=== PATIENT | female | born 1950 | race African-American/Black ===

== ENCOUNTER 2018-06-12 17:12 | Inpatient (IN) ==
[2018-06-12 18:00] LABS: BASO# 0.04 X1000 (0.0-0.2); BASO% 0.5 % (0.0-0.8); EOS# 0.16 X1000 (0.0-0.7); EOS% 2.2 % (0.0-10.0); HEMATOCRIT 33.4 % (37.0-47.0); HEMOGLOBIN 9.8 g/dL (12.0-16.0); IMM GRAN# 0.04 X1000 (0.0-0.04); IMM GRAN% 0.5 % (0.0-0.5); LYMPH% 21.9 % (20.5-51.1); MCH 24.9 PG (27-31); MCHC 29.3 g/dL (33-37); MONO# 0.67 X1000 (0.11-0.59); MONO% 9.2 % (1.7-9.3); NEUT# 4.81 X1000 (1.4-6.5); NEUT% 65.7 % (42.2-75.2); PLT 283 X1000 (130-400); RBC 3.93 XMIL (4.2-5.4); RDW 17.2 % (11.5-14.5); WBC 7.32 X1000 (4.8-10.8)
[2018-06-12 18:21] LABS: ALBUMIN 4.2 g/dL (3.5-5.0); CALCIUM 8.6 mg/dL (8.8-10.2); CREATININE 2.9 mg/dL (0.5-0.9); POTASSIUM 5.8 mmol/L (3.5-5.1); TOTAL BILIRUBIN 0.2 mg/dL (0.20-1.00); TOTAL PROTEIN 8.1 g/dL (6.3-8.3)
[2018-06-12 19:04] LABS: BILIRUBIN URINE NEGATIVE (NEGATIVE); BLOOD URINE NEGATIVE (NEGATIVE); CLARITY SL. CLOUDY (CLEAR); COLOR YELLOW; GLUCOSE URINE NEGATIVE (NEGATIVE); KETONE URINE NEGATIVE (NEGATIVE); LEUKOCYTES URINE 1+ (NEGATIVE); NITRITE URINE NEGATIVE (NEGATIVE); PROTEIN URINE 1+(30 mg/dL) mg/dL (NEGATIVE); SP GRAVITY URINE 1.015; UROBILINOGEN URINE NORMAL
[2018-06-12 19:07] LABS: URINE BACTERIA 2+ /HFP; URINE CAST NONE SEEN /LPF; URINE CRYSTAL NONE SEEN /HPF; URINE EPITHELIAL CELLS >10 /HPF (<10); URINE SOURCE CLEAN CATCH; URINE YEAST PRESENT /HPF
--- NOTE | 2018-06-12 19:16 | PROVIDER DOCUMENTATION ---
HPI-Abdominal Pain/GI Problem - General Chief Complaint: Abdominal Pain Stated Complaint: STOMACH PAIN/COLD Time Seen by Provider: 06/12/18 18:33 Source: patient, family Allergies/Adverse Reactions: Patient Allergies Allergy/AdvReac Type Severity Reaction Status Date / Time codeine [Codeine] Allergy Unknown Verified 06/12/18 17:25 Penicillins Allergy Unknown Verified 06/12/18 17:25 Home Medications: Home Medication List Medication Instructions Recorded Confirmed Last Taken Type Clopidogrel [Plavix] 75 mg PO DAILY 06/02/14 08/26/17 08/09/15 09:00 History ATORVAstatin [Lipitor] 80 mg PO QHS 10/25/14 08/26/17 08/09/15 09:00 History Omeprazole 20 mg PO DAILY@0700 10/25/14 08/26/17 08/09/15 06:00 History Tamsulosin HCl 0.4 mg PO QHS 10/25/14 08/26/17 08/09/15 09:00 History Carvedilol [Coreg] 25 mg PO BID #60 tablet 08/05/15 08/26/17 08/09/15 21:00 Rx Amlodipine [Norvasc] 10 mg PO DAILY 08/10/15 08/26/17 08/08/15 09:00 History Escitalopram Oxalate [Lexapro] 10 mg PO DAILY 12/25/16 08/26/17 Unknown History Insulin Glargine [Lantus] 15 unit SUBQ QHS 12/25/16 08/26/17 Unknown History Furosemide [Lasix] 40 mg PO DAILY #30 tab 08/23/17 08/26/17 Unknown Rx Potassium Chloride E.r. [Klor-Con] 20 meq PO DAILY tablet 08/23/17 08/26/17 Unknown Rx Atropine 1 % Ophth Soln 4 drop PO PRN PRN 08/27/17 08/27/17 Unknown History Levofloxacin [Levaquin] 250 mg PO Q48H #3 tab 08/30/17 Unknown Rx - History of Present Illness-ABD Nature of Presenting Problems: Patient is a 67yo F, accompanied by son, who presents w/ c/o generalized abdominal pain and nausea intermittently x1 week. Patient has had a CVA and patient's son is her caregiver at home. Patient is a somewhat poor historian d/t CVA. Son reports she has had a BM [employer], but that she hasn't been having "good" BMs recently. Patient's son reports possible fever, d/t patient sweating, which is abnormal for her. Patient reports intermittent burning upon urination. Denies any vomiting, urinary frequency/urgency, CP, or SOB. Abdominal Pain Onset Location: reports: generalized abdomen Pain Radiation: reports: no radiation Quality of Pain: reports: pressure, throbbing Severity in ED: reports: moderate Onset/Duration: reports: 1 week ago Timing: reports: intermittent Activities at Onset: reports: none Modifying Factors: improves with: nothing Associated Symptoms: reports: constipation, fever/chills, genitourinary problems , nausea. denies: chest pain, diarrhea, dizziness, vomiting Last BM: this afternoon Dark Stools Present?: reports: none noticed Rectal Bleeding: reports: none Rectal Pain: reports: none Emesis Description: reports: none Bruising or Bleeding Gums?: No Similar Symptoms Previously?: No Recently seen or treated by another doctor?: No Review of Systems - Adult - REVIEW OF SYSTEMS - ADULT ROS:: ROS per family Constitutional: reports: chills, fever Eyes: reports: no symptoms reported Ears, Nose, Mouth & Throat: reports: no symptoms reported Cardiovascular: denies: chest pain, palpitations Respiratory: denies: cough, shortness of breath Gastrointestinal: reports: see HPI, abdominal pain, constipation, nausea. denies: diarrhea, vomiting Genitourinary: reports: see HPI, dysuria. denies: frequency, urgency Musculoskeletal: reports: no symptoms reported Integumentary: reports: no symptoms reported Neurological: reports: see HPI, slurred speech (hx of CVA) Psychiatric: reports: no symptoms reported Endocrine: reports: no symptoms reported All Other Systems: Reviewed and Negative Past History - Adult - PAST MEDICAL HISTORY-ADULT Review of Records: reports: Nursing Assessment Review, Medications Reviewed Major Childhood Illnesses: reports: denies history Cardiovascular: reports: CAD, HTN, hyperlipidemia, CT Respiratory: reports: denies history Gastrointestinal: reports: denies history Obstetrical/Gynecological: reports: denies history Genitourinary: reports: kidney disease, chronic UTI's Musculoskeletal: reports: denies history Neurological: reports: CVA, stroke deficits (left sided), dementia Endocrine/Immune: reports: anemia, Diabetes Other Conditions: reports: denies history - PRIOR SURGERIES/PROCEDURES Surgical/Procedure History: reports: cholecystectomy, hysterectomy - IMMUNIZATION STATUS Childhood Immunizations: See Nurse Assessment Flu Vaccine: See Nurse Assessment - FAMILY HISTORY Family History: reviewed, not pertinent - SOCIAL HISTORY Smoking: other (former) Physical Exam-General - PHYSICAL EXAM-ADULT Initial Vital Signs Reviewed: Yes - CONSTITUTIONAL General Appearance: alert, moderate distress, other (slurred speech d/t CVA hx) - EYES Eyes: PERRL/EOMI, pink conjunctivae - HEAD, EARS, NOSE, MOUTH & THROAT HENMT: normocephalic/atraumatic, moist mucous membranes - NECK Neck: supple, normal inspection - RESPIRATORY Respiratory: chest non-tender, lungs clear, normal breath sounds, no pleuratic chest pain, no respiratory distress, no accessory muscle use - CARDIOVASCULAR Cardiovascular: regular rate, rhythm, no gallop, no murmur - GASTROINTESTINAL (ABDOMEN) Abdominal Exam: normal bowel sounds, tenderness (generalized TTP), other (semi- firm abdomen upon palpation). negative: guarding, rigid, rebound, McBurney's point tenderness - MUSCULOSKELETAL Back Exam: normal inspection Extremity: normal range of motion, non-tender - SKIN Integumentary: normal color, normal turgor - NEUROLOGIC Neurologic: grossly normal - PSYCHIATRIC Psych/Mental Status: normal mood/affect Progress - PLAN OF CARE/RESULTS Progress/Plan/Lab Results: Vital Signs - 8 hr 06/12/18 17:22 Temperature 98.9 F Pulse Rate 80 Respiratory Rate 20 Blood Pressure 127/73 O2 Sat by Pulse Oximetry 98 Laboratory Results - last 24 hr 06/12/18 06/12/18 06/12/18 17:46 17:46 17:46 WBC 7.32 RBC 3.93 L Hgb 9.8 L Hct 33.4 L MCV 85.0 MCH 24.9 L MCHC 29.3 L RDW Std Deviation 17.2 H Plt Count 283 MPV 10.0 Immature Gran % (Auto) 0.5 Neut % (Auto) 65.7 Lymph % (Auto) 21.9 [place] % (Auto) 9.2 Eos % (Auto) 2.2 Baso % (Auto) 0.5 Immature Gran # (Auto) 0.04 Neut # (Auto) 4.81 Lymph # (Auto) 1.60 [place] # (Auto) 0.67 H Eos # (Auto) 0.16 Baso # (Auto) 0.04 Sodium 142 Potassium 5.8 H Chloride 117 H Carbon Dioxide 14 L Anion Gap 11 BUN 23 H Creatinine 2.9 H Estimated GFR/1.73 m2 16 BUN/Creatinine Ratio 8 Glucose 164 H Calculated Osmolality 290 Calcium 8.6 L Total Bilirubin 0.20 AST 9 L ALT 8 L Alkaline Phosphatase 216 H Total Protein 8.1 Albumin 4.2 Globulin 4.0 Albumin/Globulin Ratio 1.0 Amylase 297 H Lipase 179 H Urine Source Urine Color Urine Clarity Urine pH Ur Specific [place] Urine Protein Urine Ketones Urine Blood Urine Nitrite Urine Bilirubin Urine Urobilinogen Urine Microscopic RBC Urine WBC Urine Microscopic WBC Ur Epithelial Cells Urine Crystals Urine Bacteria Urine Casts Urine Yeast Urine Glucose 06/12/18 18:29 WBC RBC Hgb Hct MCV MCH MCHC RDW Std Deviation Plt Count MPV Immature Gran % (Auto) Neut % (Auto) Lymph % (Auto) [place] % (Auto) Eos % (Auto) Baso % (Auto) Immature Gran # (Auto) Neut # (Auto) Lymph # (Auto) [place] # (Auto) Eos # (Auto) Baso # (Auto) Sodium Potassium Chloride Carbon Dioxide Anion Gap BUN Creatinine Estimated GFR/1.73 m2 BUN/Creatinine Ratio Glucose Calculated Osmolality Calcium Total Bilirubin AST ALT Alkaline Phosphatase Total Protein Albumin Globulin Albumin/Globulin Ratio Amylase Lipase Urine Source CLEAN CATCH Urine Color YELLOW Urine Clarity SL. CLOUDY A Urine pH 5.0 Ur Specific [place] 1.015 Urine Protein 1+(30 mg/dL) A Urine Ketones NEGATIVE Urine Blood NEGATIVE Urine Nitrite NEGATIVE Urine Bilirubin NEGATIVE Urine Urobilinogen NORMAL Urine Microscopic RBC Not Reportable Urine WBC 1+ A Urine Microscopic WBC 10-20 A Ur Epithelial Cells >10 A Urine Crystals NONE SEEN Urine Bacteria 2+ Urine Casts NONE SEEN Urine Yeast PRESENT Urine Glucose NEGATIVE Orders Category Date Time Status Cardiac Monitoring DIRECTED Care 06/12/18 19:12 Active Saline Loc NOW Care 06/12/18 19:11 Active Straight Catheterization ORDERED Care 06/12/18 18:30 Active KUB ABDOMEN [RAD] Stat Exams 06/12/18 19:11 Ordered AMYLASE [CHEM] Stat Lab 06/12/18 17:46 Completed CBC WITH DIFF [HEME] Stat Lab 06/12/18 17:46 Completed CMP [COMPREHENSIVE METABOLIC PANEL] [CHEM] Stat Lab 06/12/18 17:46 Completed LIPASE [CHEM] Stat Lab 06/12/18 17:46 Completed URINE CULTURE [RM] Routine Lab 06/12/18 19:07 Ordered ua [URINALYSIS PL W/POSS RFLX CULT] [URINALYSIS] Stat Lab 06/12/18 18:29 Completed EKG [EKG] Stat Ther 06/12/18 19:03 Ordered Lab results, imaging results, and plan of care discussed with patient and son who verbalize understanding. Plan of care discussed and formulated in conjunction with Dr. Villalobos. Result Diagrams: 06/12/18 17:46 06/12/18 17:46 - EKG 1 Time of EKG reading by physician:: 19:21 EKG Read and Signed by:: Umer Villalobos EKG Interpretation (*Must complete 3 of following elements*): Abnormal Rate: 80 Rhythm: NSR Early: normal QRS: LVH CA Interval: normal ST Wave: non-specific ST changes (Consider lateral ischemia) Comments: Possible L atrial enlargement - CT/MRI 1 CT Study: Abdomen, Pelvis Impression: See EMR Report ([facility] [address] [place] [address], [address], [place] [address] Department of Imaging Patient: AYLEEN BARR ANNADM Date: 06/12/18#: [id number] : 1950DM Status: REG ERAcct#: [id number] Age/Sex: 67/FRoom/Bed: Loc: P.ED Ordering Physician: Umer Villalobos MD Family Physician: Jose Armando George MD Reason for Procedure: abdominal pain Signed EXAM: CT ABDOMEN/PELVIS W/O CONTRAST HISTORY: abdominal pain TECHNIQUE: CT abdomen and pelvis without contrast COMPARISON: None. FINDINGS: The heart is enlarged. The gallbladder has been removed. No focal hepatic abnormality identified on this noncontrasted exam. Spleen is not enlarged. Normal pancreas and adrenal glands. No renal stones. No hydronephrosis. Moderate atherosclerosis. Normal appendix. No abscess. No bowel obstruction. No ascites. There are scattered diverticula. The uterus has been removed. Urinary bladder is mildly distended. No pelvic mass. Weakening to the anterior abdominal musculature most pronounced at the umbilicus. IMPRESSION: 1.Cholecystectomy 2.Cardiomegaly 3.Hysterectomy 4.Scattered diverticula This exam was performed using automated exposure control, adjustment of mA or kV according to patient size, and/or use of iterative reconstruction technique. Electronically signed by Ernie Juarez 06/12/2018 8:02 PM 06/12/182001 Interpreting Physician: Ernie Juarez MD Dictated Date/Time: 06/12/182000 cc: Umer Villalobos MD; Jose Armando George MD) - CONSULTS/PCP/HOSPITALIST Notification #1 *Consult/PCP/Hospitalist*: Kalyani Gilist Time Discussed: 20:15 Reason/Comments: Hyperkalemia, abdominal pain, UTI Consult Disposition: Admit Departure - Departure Date of Disposition Decision: 06/12/18 Time of Disposition Decision: 20:17 DIAGNOSIS: Hyperkalemia Abdominal pain Qualifiers: Abdominal location: generalized Qualified Code(s): R10.84 - Generalized abdominal pain UTI (urinary tract infection) Qualifiers: Urinary tract infection type: site unspecified Hematuria presence: without hematuria Qualified Code(s): N39.0 - Urinary tract infection, site not specified Disposition: ADMITTED INPATIENT 09 Certified Medical Emergency: Emergent Condition: Stable - Critical Care Note This patient required my direct & personal management of CC.: No Attestation - Physician/ DANIEL Attestation Patient care was provided by Advanced Practice Provider:: Yes Advanced Practice Provider:: Valeria Estrada Advanced Practice Provider documentation review:: The Mid-level provider documentation, treatment plan and medical decision making was reviewed by the physician who agrees with all treatment and medical decision making by the P. The physician spent face to face time with patient:: No Advanced Practice Provider documentation review:: Supervising physician onsite and consulted in the evaluation and care of this patient. The physician did not have a face to face encounter with the patient.
[2018-06-12] MEDS ORDERED: ROCEPHIN 1 GM in NS 50 ML IV ONE (19:28)
[2018-06-12] MEDS ORDERED: SODIUM BICARBONATE 8.4% IV PUSH ONE (19:29)
[2018-06-12] MEDS ORDERED: D50W SYRINGE IV ONE (19:30)
[2018-06-12] MEDS ORDERED: HUMULIN R (PARKWAY) IV ONE (19:30)
--- NOTE | 2018-06-12 20:05 | Diag Imaging Result Doc PS360 ---
EXAM: CT ABDOMEN/PELVIS W/O CONTRAST HISTORY: abdominal pain TECHNIQUE: CT abdomen and pelvis without contrast COMPARISON: None. FINDINGS: The heart is enlarged. The gallbladder has been removed. No focal hepatic abnormality identified on this noncontrasted exam. Spleen is not enlarged. Normal pancreas and adrenal glands. No renal stones. No hydronephrosis. Moderate atherosclerosis. Normal appendix. No abscess. No bowel obstruction. No ascites. There are scattered diverticula. The uterus has been removed. Urinary bladder is mildly distended. No pelvic mass. Weakening to the anterior abdominal musculature most pronounced at the umbilicus. IMPRESSION: 1.Cholecystectomy 2.Cardiomegaly 3.Hysterectomy 4.Scattered diverticula This exam was performed using automated exposure control, adjustment of mA or kV according to patient size, and/or use of iterative reconstruction technique. Electronically signed by Ernie Juarez 06/12/2018 8:02 PM
[2018-06-12 20:29] LABS: INR 1.07; PROTIME 14.5 Seconds (11.0-16.0)
[2018-06-12 20:30] LABS: PTT 34.6 Seconds (22.3-41.8)
[2018-06-12] MEDS ORDERED: ZOFRAN IV PRN (20:35)
[2018-06-12] MEDS ORDERED: KAYEXALATE PO ONE (22:54)
[2018-06-12] MEDS ORDERED: NS 1,000 ML IV ONE (22:54)
[2018-06-13 07:07] LABS: BASO# 0.03 X1000 (0.0-0.2); BASO% 0.4 % (0.0-0.8); EOS# 0.16 X1000 (0.0-0.7); EOS% 2.3 % (0.0-10.0); HEMATOCRIT 27.3 % (37.0-47.0); HEMOGLOBIN 7.7 g/dL (12.0-16.0); IMM GRAN# 0.02 X1000 (0.0-0.04); IMM GRAN% 0.3 % (0.0-0.5); LYMPH# 1.64 X1000 (1.2-3.4); LYMPH% 23.5 % (20.5-51.1); MCHC 28.2 g/dL (33-37); MONO# 0.85 X1000 (0.11-0.59); MONO% 12.2 % (1.7-9.3); MPV 10.2 FL (7.4-10.4); NEUT# 4.28 X1000 (1.4-6.5); NEUT% 61.3 % (42.2-75.2); PLT 212 X1000 (130-400); RBC 3.21 XMIL (4.2-5.4); WBC 6.98 X1000 (4.8-10.8)
[2018-06-13 07:17] LABS: ALBUMIN 3.3 g/dL (3.5-5.0); CALCIUM 7.8 mg/dL (8.8-10.2); CREATININE 2.7 mg/dL (0.5-0.9); POTASSIUM 5.4 mmol/L (3.5-5.1); TOTAL BILIRUBIN 0.2 mg/dL (0.20-1.00); TOTAL PROTEIN 6.4 g/dL (6.3-8.3)
[2018-06-13] MEDS: NORVASC PO SCH (09:04)
[2018-06-13] MEDS: COREG PO SCH ×2 (09:04→20:52)
[2018-06-13] MEDS: APRESOLINE PO SCH ×3 (09:04→17:26)
[2018-06-13] MEDS: PLAVIX PO SCH (09:04)
[2018-06-13] MEDS: LEXAPRO PO SCH (09:05)
--- NOTE | 2018-06-13 09:05 | Diag Imaging Result Doc PS360 ---
US ABDOMEN-COMPLETE - 06/13/2018 INDICATION: Abdominal pain elevated LFTs TECHNIQUE: Najera scale, color Doppler, and duplex evaluation of the abdomen was performed. COMPARISON: CT abdomen and pelvis 06/12/2018 FINDINGS: Exam was performed portably and patient cooperation was limited. The liver appears heterogeneous. No focal masses are appreciated. The IVC and aorta appear normal. The pancreas is unremarkable. The gallbladder is surgically absent. The common bile duct measures 6 mm. The portal vein is patent with hepatopetal flow. Spleen is unremarkable. The kidneys appear hyperechoic bilaterally suggesting medical renal disease. There is no hydronephrosis. IMPRESSION: 1.Heterogeneous liver echotexture. No focal abnormality was appreciated although the exam was limited. 2.Hyperechoic kidneys suggesting medical renal disease. Electronically signed by Lydia Peña 06/13/2018 9:03 AM
--- NOTE | 2018-06-13 09:11 | Diag Imaging Result Doc PS360 ---
EXAM: CHEST-PORTABLE HISTORY: chf TECHNIQUE: Single view of the chest was performed portably. COMPARISON: 08/26/2017 FINDINGS: There is cardiomegaly with pulmonary vascular congestion and mild interstitial edema. No definite effusion on this portable exam. Suboptimal evaluation of the retrocardiac region but no definitive infiltrate is noted. No pneumothorax is appreciated. IMPRESSION: Cardiomegaly with vascular congestion and mild interstitial edema. Electronically signed by Lydia Peña 06/13/2018 9:08 AM
[2018-06-13 09:14] LABS: OCCULT BLOOD 1 NEGATIVE (NEGATIVE)
[2018-06-13 10:11] LABS: IRON SATURATION 21 %; TIBC 174 ug/dL; TOTAL IRON 37 ug/dL (49-151); UNBOUND IRON 137 ug/dL (112-346)
[2018-06-13 10:31] LABS: TSH 0.54 uIUmL (0.27-4.20)
[2018-06-13] MEDS ORDERED: LASIX IV ONE (11:56)
[2018-06-13] MEDS ORDERED: VELTASSA PO ONE (12:26)
--- NOTE | 2018-06-13 13:04 | EKG Report ---
Test Performed on : 06/13/2018 12:56:27 PM Test Reason : HYPERKALEMIA Blood Pressure : / mmHG Vent. Rate : 083 BPM Atrial Rate : 083 BPM P-R Int : 166 ms QRS Dur : 106 ms QT Int : 378 ms P-R-T Axes : 061 -34 113 degrees QTc Int : 444 ms Normal sinus rhythm. Left axis deviation Minimal voltage criteria for LVH, may be normal variant Possible Anterior infarct (cited on or before 12-JUN-2018) T wave abnormality, consider lateral ischemia Abnormal ECG When compared with ECG of 12-JUN-2018 19:19, (Unconfirmed) No significant change was found Confirmed by J Luis Ha MD ([id number]) on 06/19/2018 4:21:43 AM
--- NOTE | 2018-06-13 13:22 | HISTORY AND PHYSICAL ---
PRIMARY CARE PHYSICIAN: Dr. Jose Armando George CHIEF COMPLAINT: Per records is abdominal pain. HISTORY OF PRESENT ILLNESS: Ms. Kang is a 67-year-old female with a history that is obtained per chart review, as the patient has dysarthria secondary to previous CVA, and there is no family at the bedside, and her words are incomprehensible. Reports from the ER state that she came in with abdominal pain x1 week with possible fever and diaphoresis. There was also complaint of possible dysuria. No chest pain, shortness of breath or vomiting. In the ER, she had abdomen and pelvis CT without contrast which showed nothing acute. Her laboratory data shows a normocytic anemia, hyperkalemia with a non-gap metabolic acidosis and hyperkalemia as well as creatinine of 2.9 which appears to be chronic. There is also question of UTI. She was given hyperkalemia treatment yesterday in the ER and admitted. This morning, her potassium is down to 5.4. She does have mildly worse hyperchloremia, but her CO2 has remained at 14, and she has had a very slight improvement in her renal function. She has, however, had a drop of almost 2 points in her hemoglobin and hematocrit. She was getting normal saline at 100 mL an hour which has been stopped, and we have started bicarb-containing fluids for her hyperchloremic acidosis. She will be admitted for further treatment and evaluation. PAST MEDICAL HISTORY: 1. Right cerebral hemisphere stroke with dysarthria, left-sided paralysis. 2. Insulin dependent diabetes mellitus. 3. Hyperlipidemia. 4. Depression. 5. Hypertension. 6. Nonischemic cardiomyopathy, EF of 20%. 7. Systolic congestive heart failure. 8. CKD 3 to 4. Baseline unknown, as she has had not renal function evaluated in some time. PAST SURGICAL HISTORY: Cholecystectomy, hysterectomy. SOCIAL HISTORY: She is a former smoker. No tobacco, alcohol or drug use currently. Apparently she lives with her son. FAMILY HISTORY: Noncontributory. REVIEW OF SYSTEMS: Unable to obtain. HOME MEDICATIONS: Apresoline 50 mg p.o. t.i.d., Klor-Con 20 mEq p.o. b.i.d., Lantus 15 units subcutaneously at bedtime, Lexapro 10 mg daily, Lipitor 80 mg at bedtime, Norvasc 10 mg daily, Plavix 75 mg p.o. daily, Flomax 0.4 mg p.o. at bedtime, Coreg 25 mg p.o. b.i.d. ALLERGIES: Codeine and penicillin. PHYSICAL EXAMINATION: VITAL SIGNS: Blood pressure is 126/66, heart rate 67, respiratory rate is 20, O2 saturation is 99% on room air. Temperature is 99 degrees Fahrenheit. GENERAL: A chronically ill-appearing 67-year-old female lying on his bed in no acute distress. NEUROLOGICAL: The patient is sleeping but opens her eyes to verbal stimulus. She does try to speak but incomprehensibly so. She is able to follow commands with the right side of her body. Strength is 4/5. She has complete left-sided paralysis. HEENT: Head is atraumatic and normocephalic. Pupils are equal, round and reactive to light. Oral mucosa is slightly dry. NECK: Trachea is midline. There is no JVD. CHEST: Coarse breath sounds bilaterally. CARDIOVASCULAR: Regular rate and rhythm. S1 and S2 noted. GASTROINTESTINAL: Soft, nondistended. Bowel sounds are hypoactive. EXTREMITIES: Trace edema. Pulses 1+ bilaterally. DIAGNOSTIC DATA: Chest x-ray taken this morning shows cardiomegaly and pulmonary vascular congestion, mild interstitial edema. Abdomen ultrasound shows heterogenous liver echotexture, no focal abnormality appreciated. Hyperechoic kidneys. Abdomen and pelvis CT with cholecystectomy, cardiomegaly, hysterectomy, scattered diverticula. EKG is pending. WBC is 6.98, hemoglobin 7.7, hematocrit 27.3, platelet count 212. Sodium is 143, potassium 5.4, chloride 120, CO2 is 14, anion gap 9, BUN is 21, creatinine 2.7, glucose 163, calcium 7.8. Iron is 37, TIBC is 174, percent saturation is 21. Bilirubin is 0.2, alkaline phosphatase 164. Albumin 3.3. B12 is 546. TSH is 0.54. Urine is slightly cloudy, 1+ protein, but greater than 10 epithelial cells, 2+ bacteria. Occult blood is negative in the stool. ASSESSMENT AND PLAN: 1. Abdominal pain. At this time, the patient is not having any abdominal pain. She is able to shake her head no when asked if there was pain. Her abdomen exam is benign, and imaging does not show anything acute. We will continue a diet as tolerated and monitor. 2. Hyperkalemia. This has been treated with medications in the ER last night, but she is still mildly hyperkalemic. We will need to check an EKG. We will add sodium bicarbonate containing fluids given her fairly profound non-gap acidosis. We will make sure she is on telemetry and follow labs and treat accordingly. We will also give her another dose of Veltassa. 3. Non-anion gap metabolic acidosis. Likely a combination of her chronic kidney disease along with exogenous administration of chloride containing fluids in the ER last night. We have stopped the fluids, and we will put her on D5W with 3 amps of bicarb at a low dose and recheck a chest x-ray and evaluate electrolytes and acid base in the morning. 4. Acute on chronic systolic congestive heart failure. We will give her Lasix now and check an EKG, trend her cardiac enzymes. 5. Diabetes mellitus. We will add pattern sugars and sliding scale insulin, check an A1c. 6. Anemia. Appears to be chronic disease related. She is iron deficient. We will start her on Icar-C. 7. History of cerebrovascular accident with dysarthria and left-sided paralysis. Stable, chronic. 8. Hypertension. Continue home medications. 9. DVT prophylaxis with SCDs. Further recommendations to follow. Dictated by MITRA Mclaughlin for Reji Lyons MD cc: MITRA Mclaughlin MD
[2018-06-13] MEDS: SODIUM BICARBONATE 8.4% 150 MEQ in D5W 1,000 ML IV SCH (13:44)
[2018-06-13 15:44] LABS: HEMATOCRIT 29.5 % (37.0-47.0); HEMOGLOBIN 8.7 g/dL (12.0-16.0); MCH 25.2 PG (27-31); MCHC 29.5 g/dL (33-37); MCV 85.5 FL (81-99); MPV 10.1 FL (7.4-10.4); RBC 3.45 XMIL (4.2-5.4); RDW 17.1 % (11.5-14.5); WBC 7.17 X1000 (4.8-10.8)
[2018-06-13] MEDS: HUMULIN R (PARKWAY) SUBQ SCH ×2 (17:26→20:55)
[2018-06-13] MEDS ORDERED: ROCEPHIN 1 GM in NS 50 ML IV SCH (20:00)
[2018-06-13] MEDS ORDERED: LANTUS INSULIN SUBQ SCH (21:00)
[2018-06-13] MEDS ORDERED: LIPITOR PO SCH (21:00)
[2018-06-13] MEDS ORDERED: FLOMAX PO SCH (21:00)
--- NOTE | 2018-06-14 00:07 | HISTORY AND PHYSICAL ---
ADDENDUM: The patient is seen and examined by myself. Full note dictated and discussed with nurse practitioner. The patient presented to the hospital with abdominal pain. She notes the pain is slightly better currently. She did have a bowel movement earlier. We will continue to follow. OBJECTIVE: General: She is awake and alert. She is in no distress. Abdomen: Soft, nondistended. cc: Reji Lyons MD
[2018-06-14] MEDS: HUMULIN R (PARKWAY) SUBQ SCH ×2 (06:16→11:43)
[2018-06-14 07:04] LABS: BASO# 0.02 X1000 (0.0-0.2); BASO% 0.2 % (0.0-0.8); EOS# 0.03 X1000 (0.0-0.7); EOS% 0.4 % (0.0-10.0); HEMATOCRIT 30.6 % (37.0-47.0); HEMOGLOBIN 8.7 g/dL (12.0-16.0); IMM GRAN# 0.04 X1000 (0.0-0.04); IMM GRAN% 0.5 % (0.0-0.5); LYMPH# 0.83 X1000 (1.2-3.4); LYMPH% 9.9 % (20.5-51.1); MCH 24.2 PG (27-31); MCHC 28.4 g/dL (33-37); MCV 85.2 FL (81-99); MONO# 0.47 X1000 (0.11-0.59); MONO% 5.6 % (1.7-9.3); MPV 9.9 FL (7.4-10.4); NEUT# 6.96 X1000 (1.4-6.5); NEUT% 83.4 % (42.2-75.2); PLT 229 X1000 (130-400); RBC 3.59 XMIL (4.2-5.4); RDW 17.1 % (11.5-14.5); WBC 8.35 X1000 (4.8-10.8)
[2018-06-14 08:10] LABS: CALCIUM 8.4 mg/dL (8.8-10.2); CREATININE 2.8 mg/dL (0.5-0.9); MAGNESIUM 1.6 mg/dL (1.5-2.7); POTASSIUM 4.7 mmol/L (3.5-5.1)
[2018-06-14] MEDS ORDERED: ICAR-C PO SCH (09:00)
[2018-06-14] MEDS: APRESOLINE PO SCH ×2 (09:29→13:11)
[2018-06-14] MEDS: NORVASC PO SCH (09:29)
[2018-06-14] MEDS: LEXAPRO PO SCH (09:29)
[2018-06-14] MEDS: PLAVIX PO SCH (09:29)
[2018-06-14] MEDS: COREG PO SCH (09:29)
[2018-06-14] MEDS: SODIUM BICARBONATE 8.4% 150 MEQ in D5W 1,000 ML IV SCH (12:07)
[2018-06-14 12:35] VITALS: BP 138/74
--- NOTE | 2018-06-14 21:02 | DISCHARGE SUMMARY ---
ADMISSION DATE: 06/12/2018 DISCHARGE DATE: 06/14/2018 ADDENDUM: Patient was seen and examined by myself. Full note dictated and discussed with nurse practitioner. On discharge, patient is awake, alert, in no current respiratory distress. States her abdomen is better. She is asking to go home. She tolerated a regular diet. Therefore, she will be discharged home. Please see full note. cc: Reji Lyons MD
--- NOTE | 2018-06-15 09:15 | DISCHARGE SUMMARY ---
ADMISSION DATE: 06/12/2018 DISCHARGE DATE: 06/14/2018 ADMISSION DIAGNOSIS: 1. Abdominal pain. 2. Hyperkalemia. 3. Non-anion gap metabolic acidosis. 4. [id number] systolic heart failure. 5. Acute kidney injury on chronic kidney disease. 6. Nonischemic cardiomyopathy. 7. Insulin-dependent diabetes mellitus. 8. 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 DISCHARGE DIAGNOSIS: 1. Abdominal pain. 2. Hyperkalemia. 3. Non-anion gap metabolic acidosis. 4. [id number] systolic heart failure. 5. Acute kidney injury on chronic kidney disease. 6. Nonischemic cardiomyopathy. 7. Insulin-dependent diabetes mellitus. 8. 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 CONSULTATIONS: None. DIAGNOSTIC PROCEDURES AND FINDINGS: Abdomen and pelvis CT 06/12/2018: Cholecystectomy, cardiomegaly, hysterectomy, scattered diverticula. Abdominal ultrasound 06/13/2018: Heterogeneous liver echotexture, no focal abnormality, hyperechoic kidneys suggesting medical renal disease. Chest x-ray 06/13/2018: Cardiomegaly with vascular congestion, mild interstitial edema. EKG 06/13/2018: Sinus rhythm, nonspecific ST changes. HOSPITAL COURSE: Mrs. Kang is a 67-year-old -[place]ales[place] female, who has severe dysarthria from previous stroke and left-sided paralysis, who presented with abdominal pain. The patient is a poor historian and essentially incomprehensible with her dysarthria, history was taken per chart review, as her son was not at the bedside during evaluation. There were reports of abdominal pain and questionable fever, she came to the ER, CT of the abdomen and pelvis was done, which did not show anything acute. The rest of her laboratory data was significant for hyperkalemia, CATALINA on CKD, and significant non-gap acidosis. She was initially started on normal saline by the ER, however, this was immediately stopped as she has a history of poor renal function and an EF of 20% to 25%. We checked a chest x-ray, which showed cardiomegaly and pulmonary edema. We started diuresis and she was given hyperkalemia medication in the ER, which improved her potassium. With respects to her non-gap acidosis, we started a sodium bicarbonate drip. Interestingly, she did not have any abdominal discomfort while she was in the hospital, however, we did treat her hyperkalemia appropriately as well as non-gap acidosis. She tolerated p.o. diet well throughout her entire admission. She is now stable for discharge home with home health. DISCHARGE MEDICATIONS: Plavix 75 mg daily, atorvastatin 80 mg at bedtime, Flomax 0.4 mg p.o. at bedtime, Coreg 25 mg p.o. b.i.d., Norvasc 10 mg daily, Lexapro 10 mg daily, Lantus 15 units subcutaneously at bedtime, Apresoline 50 mg p.o. t.i.d., potassium chloride 20 mEq p.o. b.i.d. DISCHARGE DIET: Diabetic. DISCHARGE ACTIVITY: Resume activity as tolerated. DISPOSITION AND DISCHARGE INSTRUCTIONS: The patient is discharged home with home health. She is to continue all medications and activity as directed. She is to follow up with Dr. Jose Armando George, her PCP, within the next 1-2 weeks or sooner if needed. She is to return to the ER or call 911 for worsening complaints or concerns. All questions answered. DISCHARGE TIME: Greater than 35 minutes. Dictated by MITRA Mclaughlin for Reji Lyons MD cc: MITRA Mclaughlin MD
== END 2018-06-14 16:58 | disposition home health service (06) | DRG 640 ==
LOC: P.ED 17:12 → SUATTDRO 21:44 → P.MEDSURG 21:44
PROVIDERS: ATTEND Family Medicine
CPT/HCPCS: 51701; 71010; 71045; 74176; 76700; 80048; 80053; 81001; 82150; 82270; 82550; 82607; 82728; 82746; 82948; 83540; 83550; 83690; 83735; 83880; 84443; 84484; 85025; 85027; 85610; 85730; 87088; 93005; 93010; 99285; A9270; J0696; J1815; J1940; J7030; J7070; P9612; XXXXX